=== PATIENT | male | born 1990 | race American Indian/Alaskan Native ===

== ENCOUNTER 2017-05-21 18:40 | Emergency (ER) | payer SELFPAY ==
[2017-05-21 21:42] VITALS: BP 146/69
--- NOTE | 2017-05-21 22:20 | XRay Report ---
FINAL REPORT EXAM: XR KNEE 3V LT HISTORY: left knee pain TECHNIQUE: Left knee three views PRIORS: None. FINDINGS: There is no acute fracture or dislocation identified. No evidence for joint effusion Multiple bony lesions are present distal femur and proximal tibia. These appear contiguous with the a bony cortex and are well-defined. Three of these are seen on at the distal of femur 1 on the lateral aspect in 2 additional lesions at the medial aspect there may be a additional posterior lesion present. There is a large of lesion present lateral aspect of the proximal tibia and a smaller more sessile appearing lesion along the medial posterior aspect. IMPRESSION: Multiple bony lesions distal femur and proximal tibia consistent in appearance with osteochondroma. 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 These could be further evaluated with MRI. No acute fracture or dislocation identified
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
[2017-05-22] MEDS ORDERED: FLEXERIL PO ONE (00:10)
[2017-05-22] MEDS ORDERED: MOTRIN PO ONE (00:10)
== END 2017-05-22 00:30 | disposition home or self-care (01) ==
LOC: ED 18:40
DX: D16.9 Benign neoplasm of bone and articular cartilage, unspecified (principal); M25.562 Pain in left knee
CPT/HCPCS: 99283